=== PATIENT | male | born 1985 | race Caucasian/White ===

== ENCOUNTER 2023-02-10 14:25 | Emergency (ER) | payer OTHER, SELFPAY ==
[2023-02-10 14:43] VITALS: BP 124/62; BP 140/90; PULSE 124; RESP 20; TEMP 36.6; O2SAT 96; BMI 22.1
--- NOTE | 2023-02-10 14:59 | ED.GENADULT ---
HPI - General Adult General Chief complaint: ETOH/Substance Use Stated complaint: Poss ETOH, heavy sweating per EMS Time Seen by Provider: 02/10/23 14:50 Source: patient and EMS Mode of arrival: EMS Limitations: no limitations History of Present Illness HPI narrative: patient reports having taken drugs earlier today. He thought it was post be heroin. Is not sure exactly what he took. He otherwise feels fine. Denies any chest pain, shortness breath, palpitations. He does feel a bit restless nervous. He denies any suicidal homicidal ideation. Denies any risk of overdose. He denies any recent psychiatric evaluation. He has been to [facility] in [facility] for similar events. Does not wish to have any further evaluation at this time. He would like to be discharged. Related Data Allergies Allergy/AdvReac Type Severity Reaction Status Date / Time No Known Allergies Allergy Unverified 03/25/20 15:26 [No Known Allergies*] Review of Systems Review of Systems: CONSTITUTIONAL: Denies weight loss, fever and chills. HEENT: Denies changes in vision and hearing. RESPIRATORY: Denies SOB and cough. CV: Denies palpitations no CP. GI: Denies abdominal pain, nausea, vomiting and diarrhea. : Denies dysuria and urinary frequency. MSK: Denies myalgia and joint pain. SKIN: Denies rash and pruritus. NEUROLOGICAL: Denies headache and syncope. PSYCHIATRIC: Denies recent changes in mood. Denies anxiety and depression. All other ROS are negative unless in HPI Physical Exam ED Vital Signs: Vital Signs - 24 hr 02/10/23 14:43 Temperature 98 F Pulse Rate 124 H Respiratory Rate 20 Blood Pressure 124/62 Pulse Oximetry 96 Oxygen Delivery Method Room Air BMI result Body Mass Index 22.1 GEN: Well developed, no acute distress, alert, oriented , agitated HEENT: Normocephalic, atraumatic, normal external ears, nose appears normal, no oropharyngeal edema or exudates Eyes: Normal to appearance Neck: Supple, no lymphadenopathy Respiratory: Talks in complete sentences, no respiratory distress, clear to auscultation bilaterally Cardiovascular: Regular rate and rhythm, no murmurs rubs or gallops Abdomen: Soft, nontender, nondistended, no guarding, no rebound Back: No CVA tenderness Extremities: No clubbing cyanosis or edema Neurologic: No focal neurologic deficits, cranial nerves 2-12 intact, strength is 5/5 bilaterally Skin: No rash Medical Decision Making Medical Decision Making MDM Narrative: 38-year-old male presents with likely intoxication from unknown substance. Patient does not wish further workup. Alert, oriented. He is not suicidal homicidal. He understands that without a workup we cannot address when he may have taken in terms of illicit drugs. He is aware that that there may be started rebound reactions. Despite this, he would like to be discharged. I see no reason to do any further intervention as he remains alert and oriented. Did not receive any Narcan. He is not suicidal homicidal. He does not appear to pose threat to himself or others. Patient denies a previous psychiatric history. Differential Diagnosis Differential Diagnoses: The differential diagnosis associated with the presentation includes ( Intoxication, alcohol abuse, drug abuse, schizophrenia, bipolar disorder, agitation) Admission/Observation Consideration of admission/observation: Escalation of care including admission/observation considered Independent Historian Clinical information obtained from an independent historian. History obtained from or confirmed by: EMS Prescription Management I considered prescription management with: Other ( anxiety medications) Discharge Plan Discharge Clinical Impression: Current drug use Patient Disposition: Home, Self-Care Instructions: Polysubstance Abuse (ED) Referrals: [facility] [Provider Group]
== END 2023-02-10 15:49 | disposition home or self-care (01) ==
PROVIDERS: Emergency Provider Emergency Medicine; PCP Internal Medicine
DX: F19.90 Other psychoactive substance use, unspecified, uncomplicated (principal)
CPT/HCPCS: 99282

== ENCOUNTER 2023-02-11 04:49 | Emergency (ER) | payer OTHER, SELFPAY ==
[2023-02-11 05:03] VITALS: BP 146/86; PULSE 91; O2SAT 94; BMI 23.3
[2023-02-11 05:19] VITALS: BP 118/56; PULSE 80; RESP 18; TEMP 37.2; O2SAT 96
--- NOTE | 2023-02-11 05:20 | PC.NURSE ---
Pt alert and oriented to self and surroundings. VSS. Appears to be under the influence of a substance. Fidgety and restless, unable to sit still. Requiring assistance with changing into hospital attire as pt is unable to focus on a task. Unable to provide urine sample. Security at bedside. Pts belongings placed in decon. Pt noted to have $520 in [place], with security at this time. After short time at the bedside pt fell asleep. Pending physician eval. Will continue to monitor.
--- NOTE | 2023-02-11 05:33 | ED.PSYCH ---
HPI - Psych General Chief Complaint: ETOH/Substance Use Stated Complaint: AMS, Substance Abuse ? Time Seen by Provider: 02/11/23 05:29 Source: patient Mode of arrival: EMS Limitations: no limitations History of Present Illness HPI Narrative: Patient with history of substance Abuse says that he use fentanyl earlier, was in the parking lot screaming and yelling denied alcohol or any other substance abuse acting vague in the ER refused to give the urine sample for the test Related Data Allergies Allergy/AdvReac Type Severity Reaction Status Date / Time No Known Allergies Allergy Unverified 03/25/20 15:26 [No Known Allergies*] Review of Systems Review of Systems: Yes all other systems are reviewed and are negative PMFSH Social History Social History Advance Directives: No Advance Directives Information Provided: Yes Physical Exam Vital Signs: Vital Signs: Last Vital Signs Temp 98.9 F 02/11/23 05:19 Pulse 80 02/11/23 05:19 Resp 18 02/11/23 05:19 BP 118/56 L 02/11/23 05:19 Pulse Ox 96 02/11/23 05:19 O2 Del Method Room Air 02/11/23 05:19 BMI result Body Mass Index 23.3 Appearance: Alert. Oriented X3. No acute distress. Very anxious walking around in the ED Eyes: PERRLA, No Nystagmus ENT: Pharynx normal. Oral Mucosa moist Neck: Normal inspection. Neck supple. CVS: Normal heart rate and rhythm. Pulses normal. Respiratory: No respiratory distress. Equal air entry bilateral, no wheezing/rales/rhonchi Abdomen: Soft and nontender. Bowel sounds are present, no mass palpable, no CVA tenderness Skin: Skin warm and dry. Normal skin color. Normal skin turgor. Extremities: No lower extremity edema. No calf tenderness Neuro: Oriented X 3. No motor deficit. Medical Decision Making Medical Decision Making MDM Narrative: Patient likely poly substance abuse refused to give urine sample discharge patient home ambulatory and steady 8gait Discharge Plan Discharge Clinical Impression: Polysubstance abuse Patient Disposition: Home, Self-Care Instructions: Polysubstance Abuse (ED) Additional Instructions: Stop using drugs follow detox Interventions: ED Discharge Assessment Last Done: 02/11/23 05:44 Discharge Date/Time: 02/11/23 05:45
== END 2023-02-11 05:45 | disposition home or self-care (01) ==
PROVIDERS: Emergency Provider Internal Medicine; PCP Internal Medicine
DX: R41.82 Altered mental status, unspecified (principal); Z79.899 Other long term (current) drug therapy
CPT/HCPCS: 99283

== ENCOUNTER 2023-04-11 20:33 | Emergency (ER) | payer OTHER, SELFPAY ==
[2023-04-11 20:40] VITALS: BP 146/89; BP 178/100; PULSE 120; RESP 18; TEMP 37.4; O2SAT 88; O2SAT 96; BMI 23.6
--- NOTE | 2023-04-11 21:09 | ED.ALCOHOL ---
HPI - Alcohol General Chief Complaint: ETOH/Substance Use Stated Complaint: Altered mental state Time Seen by Provider: 04/11/23 21:07 Source: patient Mode of arrival: EMS History of Present Illness HPI narrative: Patient's history of substance abuse [facility] endorses using cocaine and dope patient diaphoretic upon EMS arrival blood glucose was 67 was given oral glucose on arrival POC was 87 patient says that he did not sleep well and whenever he takes the drugs become loud specially if he has not slept well denies use of PCP Related Data Allergies Allergy/AdvReac Type Severity Reaction Status Date / Time No Known Allergies Allergy Unverified 03/25/20 15:26 [No Known Allergies*] Review of Systems Review of Systems: Yes all other systems are reviewed and are negative [facility] Social History Social History Advance Directives: No Advance Directives Information Provided: No Physical Exam ED Vital Signs: Vital Signs - 24 hr 04/11/23 20:40 04/11/23 21:52 Temperature 99.3 F Pulse Rate 120 H Respiratory Rate 18 Blood Pressure 146/89 H Pulse Oximetry 96 94 Oxygen Delivery Method Nasal Cannula Room Air BMI result Body Mass Index 23.6 Appearance: Alert. Oriented X3. No acute distress. Eyes: PERRLA, No Nystagmus ENT: Pharynx normal. Oral Mucosa moist Neck: Normal inspection. Neck supple. CVS: Normal heart rate and rhythm. Pulses normal. Respiratory: No respiratory distress. Equal air entry bilateral, no wheezing/rales/rhonchi Abdomen: Soft and nontender. Bowel sounds are present, no mass palpable, no CVA tenderness Skin: Skin warm and dry. Normal skin color. Normal skin turgor. Extremities: No lower extremity edema. No calf tenderness Neuro: Oriented X 3. No motor deficit. No sensory deficit.No cerebellar signs , cranial nerves II-XII intact Medical Decision Making Medical Decision Making [facility] Narrative: Pre of polysubstance abuse cocaine fentanyl opiates refuse the any help for detox already on methadone will discharge patient home Lab Data [facility] Lab Attestation statement: I reviewed the patient's lab results. Labs: Lab Results 04/11/23 Range/Units 21:48 Urine Opiates Screen POSITIVE H (Not Detect) Urine Fentanyl Screen POSITIVE H (Not Detect) Ur Barbiturates Screen Not Detected (Not Detect) Ur Phencyclidine Scrn Not Detected (Not Detect) Ur Amphetamines Screen Not Detected (Not Detect) U Benzodiazepines Scrn Not Detected (Not Detect) Urine Cocaine Screen POSITIVE H (Not Detect) U Marijuana (THC) Screen Not Detected (Not Detect) Discharge Plan Discharge Clinical Impression: Polysubstance abuse Patient Disposition: Home, Self-Care Instructions: Polysubstance Abuse (ED) Additional Instructions: Stop using drugs, follow up with methadone clinic Interventions: ED Discharge Assessment Last Done: 04/11/23 22:42 Discharge Date/Time: 04/11/23 22:43
--- NOTE | 2023-04-11 21:40 | PC.NURSE ---
pt ambulated to the bathroom with steady gait, A/O x4, states he was being loud and causing a scene at home which is why PD was called, denies any complaints at this time
[2023-04-11 21:52] VITALS: O2SAT 94
[2023-04-11 22:11] LABS: Amphetamine Screen Urine Not Detected (Not Detect); Barbiturates, Urine Not Detected (Not Detect); Benzodiazepines Screen Urine Not Detected (Not Detect); Cannabinoid Screen Urine Not Detected (Not Detect); Cocaine Screen Urine POSITIVE (Not Detect); Fentanyl, urine POSITIVE (Not Detect); Opiate Screen Urine POSITIVE (Not Detect); Phencyclidine Screen Urine Not Detected (Not Detect)
== END 2023-04-11 22:43 | disposition home or self-care (01) ==
PROVIDERS: Emergency Provider Internal Medicine
DX: F11.10 Opioid abuse, uncomplicated (principal); F14.10 Cocaine abuse, uncomplicated; R41.82 Altered mental status, unspecified; Z79.899 Other long term (current) drug therapy
CPT/HCPCS: 80307; 99283

== ENCOUNTER 2023-04-14 00:49 | Emergency (ER) | payer OTHER, SELFPAY ==
[2023-04-14 00:54] VITALS: BP 118/70; PULSE 95; O2SAT 100
[2023-04-14 01:02] VITALS: BP 108/51; PULSE 72; RESP 18; TEMP 37.1; O2SAT 98; BMI 22.8
[2023-04-14 01:07] VITALS: BP 108/51; PULSE 72; RESP 18; TEMP 37.1; O2SAT 98
--- NOTE | 2023-04-14 01:09 | PC.NURSE ---
Pt calm and cooperative. Responds appropriately to verbal stimuli. Pt requested and given something to drink Plan of care ongoing.
--- NOTE | 2023-04-14 01:42 | ED.GENADULT ---
HPI - General Adult General Chief complaint: General Medical Stated complaint: drug use seeking detox Time Seen by Provider: 04/14/23 01:38 Source: patient Mode of arrival: EMS Limitations: no limitations History of Present Illness HPI narrative: Patient comes to the emergency room by ambulance. Per EMS, patient was screaming in his apartment, a bystander called the sample tailor and brought the patient to the emergency room. Patient states that he is aware he has polysubstance abuse issues. Patient states that he feels well, he is already being seen in the community for addiction issues, states that he does have relapses but overall is handling his situation fairly well. Patient denies depression, anxiety, SI or HI. Related Data Allergies Allergy/AdvReac Type Severity Reaction Status Date / Time No Known Allergies Allergy Unverified 03/25/20 15:26 [No Known Allergies*] Review of Systems Review of Systems: Constitutional : No Weight loss, No Fever, No Chills, No Night Sweats, No Fatigue, No Malaise ENT/Mouth : No Hearing loss, No Ear Pain, No Nasal Congestion, No Sinus Pain, No Hoarseness, No sore throat, No Rhinorrhea, No Swallowing Difficulty Eyes: No Eye Pain, No Swelling, No Redness, No Foreign Body, No Discharge, No Vision Changes Cardiovascular : No Chest Pain, No SOB, No Dyspnea on Exertion, No Orthopnea, No Edema, No Palpitations Respiratory : No Cough, No Sputum, No Wheezing, No Smoke Exposure, No Dyspnea Gastrointestinal : No Nausea, No Vomiting, No Diarrhea, No Constipation, No abdominal Pain, No Hematochezia, No Melena Genitourinary : no irregular bleeding, No Dysuria, No Urinary Frequency, No Hematuria, No Urinary Incontinence, No Urgency, No Flank Pain, No Urinary Flow Changes, No Hesitancy Musculoskeletal : No joint pain, No Myalgias, No Joint Swelling Skin : No Skin Lesions, No rash Neuro : No Weakness, No Numbness, No Paresthesias, No Loss of Consciousness, No Dizziness, No Headache Psych : No Anxiety/Panic, No Depression, No SI/HI/AH/VH, admits to polysubstance abuse Heme/Lymph: No Bruising, No Bleeding,No Lymphadenopathy Endocrine : No Polyuria, No Polydipsia, No Temperature Intolerance PMFSH Past Medical History Medical History (Updated 04/14/23 @ 01:45 by Rosa Dudley MD) Polysubstance abuse Social History Social History Smoked in Last 30 Days: Yes Use of substances other than those prescribed or required for medical reasons: Yes Substance Use Type: Crack/Cocaine, Heroin and Opiates Advance Directives: No Advance Directives Information Provided: Yes Physical Exam ED Vital Signs: Vital Signs - 24 hr 04/14/23 01:02 04/14/23 01:07 Temperature 98.8 F 98.8 F Pulse Rate 72 72 Respiratory Rate 18 18 Blood Pressure 108/51 L 108/51 L Pulse Oximetry 98 98 Oxygen Delivery Method Room Air Room Air BMI result Body Mass Index 22.8 Const Other: Appearance: Alert. Oriented X3. No acute distress. Eyes: Pupils equal, round and reactive to light. ENT: Pharynx normal. Neck: Normal inspection. Neck supple. No lymph nodes noted. No crepitus CVS: Normal heart rate and rhythm. Pulses normal. Normal S1 and S2 Respiratory: No respiratory distress. Breath sounds normal. No Wheezing. No rales Abdomen: Soft and nontender. No rigidity. No distention. Skin: Skin warm and clammy. Normal skin color. Normal skin turgor. Extremities: No lower extremity edema. No Lacerations. No Rash Neuro: Oriented X 3. No motor deficit. No sensory deficit. Moving all extremities. No slurred speech. CN 2 through 12 grossly intact Psych: calm, cooperative, normal affect Medical Decision Making Medical Decision Making MDM Narrative: -patient is not suicidal or homicidal, patient did not overdose, no Narcan was given. -patient states that he has already been seen by Behavioral Health, at this time, patient states that he does not need any additional resources. -patient requesting to be discharged home, patient will be given home Narcan -patient is clinically sober, vitals stable Differential Diagnosis Differential Diagnoses: The differential diagnosis associated with the presentation includes (Anxiety, depression, polysubstance abuse) Discharge Plan Discharge Clinical Impression: Substance abuse Patient Disposition: Home, Self-Care Instructions: Polysubstance Abuse (ED) Additional Instructions: Please follow-up with your primary care physician tomorrow. If you have any worsening or new symptoms, please return to the emergency room or call 911
== END 2023-04-14 02:09 | disposition home or self-care (01) ==
PROVIDERS: Emergency Provider Emergency Medicine; PCP Internal Medicine
DX: F19.10 Other psychoactive substance abuse, uncomplicated (principal)
CPT/HCPCS: 99283; 99284

== ENCOUNTER 2023-10-12 14:47 | Emergency (ER) | payer OTHER, SELFPAY ==
[2023-10-12 15:01] VITALS: BP 160/100; PULSE 106; RESP 16; TEMP 36.9; O2SAT 98; BMI 27.1
--- NOTE | 2023-10-12 15:03 | ED.GENADULT ---
HPI - General Adult General Stated complaint: SUBSTANCE ABUSE Time Seen by Provider: 10/12/23 14:55 Source: patient and EMS Mode of arrival: EMS Limitations: no limitations History of Present Illness HPI narrative: This is a 38-year-old male history of polysubstance abuse presenting with acute intoxication of opiates and cocaine, patient reports he uses opiates and cocaine daily, he used drugs today, he is outside screaming, his neighbors got scared and called the police. He tells me he was given the ultimatum to either go with the police or come to the hospital. He came to the hospital. He reports he does not have to be here, he tells me he does this all the time. Not suicidal or homicidal. No medical complaints. Patient denies hallucinations, auditory, tactile and visual. Denies chest pain, shortness of breath, nausea, vomiting, abdominal pain, headache, vision changes, dizziness and weakness. Alert and oriented x4. Was not brought in on a section 12. Related Data Allergies Allergy/AdvReac Type Severity Reaction Status Date / Time No Known Allergies Allergy Verified 10/12/23 15:07 [No Known Allergies*] Review of Systems Review of Systems: Yes all other systems are reviewed and are negative PMFSH Past Medical History Attestation statement: The following information was validated with the patient. Source: old records reviewed and nursing notes reviewed Medical History (Updated 10/12/23 @ 15:02 by ALESHA Golden) Polysubstance abuse Social History Social History Substance Use Type: Crack/Cocaine, Heroin and Opiates Physical Exam ED Vital Signs: vss Appearance: Alert.? Oriented X3.? No acute distress.? Head: Normocephalic, atraumatic, no step-offs or deformities Eyes: Pupils equal, round and reactive to light.? Neck: Normal inspection.? Neck supple.? CVS: Pulses normal.? Respiratory: No respiratory distress.? Abdomen: Soft and nontender.? Skin: Skin warm and dry.? Normal skin color.? Normal skin turgor.? Extremities: 5/5 strength to bilateral upper and lower extremities Neuro: Oriented X 3.? No motor deficit.? No sensory deficit. CN 2-12 intact . Ambulating with steady gait normal coordination. Course Reevaluation(s) Reevaluation #1: Educated patient on diagnosis and treatment plan, answered all question, patient verbalizes understanding. At this time patient will be discharged home, advised to return with new or worsening symptoms. Educated on worrisome signs and symptoms and when to return. At this time I feel comfortable discharge home. Medical Decision Making Medical Decision Making MDM Narrative: 38-year-old male presents with polysubstance abuse. Not SI or HI. Patient wants to leave upon arrival. No medical complaints. Refusing labs, imaging, detox. Does not want substance use disorder evaluation Physical examination benign. Patient alert and oriented x4. Ambulatory steady gait normal coordination. Requesting to leave Explained to him it would be good if he got seen by the care team and was observed for awhile however he is refusing. No indication for section 12. Will discharge him home with Narcan. This is likely polysubstance abuse. Unlikely alcohol intoxication patient denies this. No metabolic derangements suspected. Unlikely intracranial hemorrhage, stroke posterior stroke. No signs of trauma to head, neck, chest, abdomen or pelvis Differential Diagnosis Differential Diagnoses: The differential diagnosis associated with the presentation includes This is likely polysubstance abuse. Unlikely alcohol intoxication patient denies this. No metabolic derangements suspected. Unlikely intracranial hemorrhage, stroke posterior stroke. No signs of trauma to head, neck, chest, abdomen or pelvis Admission/Observation Consideration of admission/observation: Escalation of care including admission/observation considered Lab Data Labs: refused Independent Historian Clinical information obtained from an independent historian. History obtained from or confirmed by: EMS Prescription Management I considered prescription management with: Other (narcan ) Chronic Conditions Patient?s care impacted by: Other (ivda) Discharge Plan Discharge Clinical Impression: Opiate addiction, Cocaine abuse, Polysubstance abuse Patient Disposition: Home, Self-Care Instructions: Cocaine Abuse (ED), Polysubstance Abuse (ED) Additional Instructions: Take your medications as prescribed. If you were prescribed antibiotics today, it is important that you take your medication to their entirety, do not skip any doses, do not finish them early. Follow-up with your primary care provider this week. Return to the emergency department with new or worsening symptoms. Such as fevers, chills, chest pain, shortness of breath, nausea, vomiting, dizziness, headache, vision changes, lethargy, suicidal or homicidal ideation In case of emergency call 911 You decided to leave the emergency department you did not want a medical workup because you report nothing is hurting you. If you change your mind please return. Referrals: ED Physician,Generic [Physician] - 2 days Stand Alone Forms: Work/School Release Print Language: Djiboutian
[2023-10-12 15:21] VITALS: BP 160/100; PULSE 106; RESP 16; TEMP 36.9; O2SAT 98
== END 2023-10-12 15:22 | disposition home or self-care (01) ==
LOC: HO.ED 15:20
PROVIDERS: Emergency Provider Emergency Medicine
DX: F11.20 Opioid dependence, uncomplicated (principal); F14.10 Cocaine abuse, uncomplicated
CPT/HCPCS: 99282

== ENCOUNTER 2024-01-26 00:13 | Emergency (ER) | payer OTHER, SELFPAY ==
[2024-01-26 00:23] VITALS: BP 132/66; PULSE 92; O2SAT 94; BMI 22.1
[2024-01-26 00:27] VITALS: BP 135/88; PULSE 94; RESP 19; TEMP 36.7; O2SAT 98
--- NOTE | 2024-01-26 01:00 | ED_ITS ---
HPI - Psych General Chief Complaint: Behavioral Concerns Stated Complaint: QUESTION OF DRUG USE Time Seen by Provider: 01/26/24 00:59 Source: patient Mode of arrival: EMS Limitations: no limitations History of Present Illness ED Provider: BETSY HPI Narrative: 38 yo male known to us with hx of opiate and cocaine abuse admits to using tonight he was making noises in his apartment and PD called who wanted him transferred for eval to see if he was on drugs. He has no SI/HI. He is calm and cooperative here. He has occasional vocal tics but is not agitated. He does not want detox. No narcan needed. Does not want detox or SUDE. Wants to leave AMA. complaint: substance abuse Onset (ago): year(s) Duration: intermittent History of same: Yes Relieving factors: none Exacerbating factors: drug use Context: recent drug abuse Associated psychiatric symptoms: none Associated symptoms: denies other symptoms Treatments prior to arrival: none Related Data Allergies Allergy/AdvReac Type Severity Reaction Status Date / Time No Known Allergies Allergy Verified 01/26/24 00:25 [No Known Allergies*] Review of Systems Review of Systems: Constitutional : No Fever, No Chills ENT/Mouth : No Ear Pain, No Nasal Congestion, No sore throat Eyes: No Eye Pain, No Swelling, No Redness Cardiovascular : No Chest Pain, No SOB Respiratory : No Cough, No Sputum, No Dyspnea Gastrointestinal : No Nausea, No Vomiting, No Diarrhea, No Hematochezia, No Melena Genitourinary : No Dysuria, No Urinary Frequency, No Hematuria Musculoskeletal : No Myalgias Skin : No Skin Lesions, No rash Neuro : No Weakness, No Numbness, No Paresthesias, No Dizziness, No Headache Psych : no Anxiety, no Depression, no SI/HI All other systems reviewed and are negative PMFSH Past Medical History Attestation statement: The following information was validated with the patient. Source: old records reviewed Medical History Polysubstance abuse Social History Social History (Updated 01/26/24 @ 01:07 by Kaya Bowden DO) Patient Tobacco Use Status: Current someday Tobacco user Substance Use Type: Crack/Cocaine, Heroin and Opiates Physical Exam Vital Signs: Vital Signs: Last Vital Signs Temp 98.0 F 01/26/24 00:27 Pulse 94 01/26/24 00:27 Resp 19 01/26/24 00:27 BP 135/88 01/26/24 00:27 Pulse Ox 98 01/26/24 00:27 O2 Del Method Room Air 01/26/24 00:27 BMI result Body Mass Index 22.1 Appearance: Alert. Oriented X3. No acute distress. intermittent vocal tics Eyes: Pupils equal, round and reactive to light. 5mm ENT: Pharynx normal. atraumatic Neck: Normal inspection. Neck supple. CVS: Normal heart rate and rhythm. Pulses normal. Respiratory: No respiratory distress. Breath sounds normal. Abdomen: Soft and nontender. Skin: Skin warm and dry. Normal skin color. Extremities: No lower extremity edema. Neuro: Oriented X 3. No motor deficit. No sensory deficit. Medical Decision Making Medical Decision Making [facility] Narrative: 38 yo male admits to drug abuse here with c/o police being called about noise complaint sent to the ED to see if he is on drugs - he has no SI/HI no AH/VH he admits to drug use. He has not received narcan he does not want any interventions. He is clinically sober. He has vocal tics. He is calm and cooperative here and alert and oriented x 3. At this time he can be DC home Differential Diagnosis Differential Diagnoses: The differential diagnosis associated with the presentation includes drug abuse Admission/Observation Consideration of admission/observation: Escalation of care including ad mission/observation considered alert and oriented x 3 - requested to leave AMA Independent Historian Clinical information obtained from an independent historian. History obtained from or confirmed by: EMS External Record Review External record reviewed: Inpatient record Prescription Management I considered prescription management with: Other Discharge Plan Discharge Clinical Impression: Active substance abuse Patient Disposition: Home, Self-Care Instructions: Polysubstance Abuse (ED), Against Medical Advice (ED) Additional Instructions: return for any worsening symptoms or concerns please carry narcan with you at all times you were offered to stay in the ED but refused you can return any time Print Language: Malay
[2024-01-26] MEDS: Naloxone HCl Nasal TAKE HOME 4 MG SPRAY 8 MG NOSTRILALT (01:18)
--- NOTE | 2024-01-26 01:18 | PC.NURSE ---
pt is axox4 refusing po meds states he does not want to stay in the ed as he has people at home he needs to go back to. pt is ambulatory with steady gait. calm/cooperative speaking full clear sentences. pt educated on narcan/overdose pt verbalizes understanding d/c instructions. unable to scan med barcode as pt walked away from RN to security to obtain clothes frm decon. pt given take home narcan. pt refused vitals.
[2024-01-26 01:19] VITALS: BP 135/88; PULSE 94; RESP 19; TEMP 36.7; O2SAT 98
== END 2024-01-26 01:20 | disposition home or self-care (01) ==
PROVIDERS: Emergency Provider Emergency Medicine
DX: F19.10 Other psychoactive substance abuse, uncomplicated (principal); Z53.29 Procedure and treatment not carried out because of patient's decision for other reasons
CPT/HCPCS: 99282; 99283

== ENCOUNTER 2024-01-27 22:19 | Emergency (ER) | payer OTHER, SELFPAY ==
--- NOTE | 2024-01-27 22:23 | ED_ITS ---
HPI - Psych General Chief Complaint: ETOH/Substance Use Stated Complaint: substance abuse Time Seen by Provider: 01/27/24 22:20 Source: patient Mode of arrival: EMS Limitations: no limitations History of Present Illness ED Provider: BETSY HPI Narrative: 39 yo male with PMH of polysubstance abuse here with c/o again of using drugs but doesn't want detox and is not suicidal. He was again outside being disruptive and loud. He is alert and oriented and wants no assistnce. He does not want labs or medications. He just wants to yell at staff. I am not sure why he keeps coming in for drug use if he is being disruptive with noise complaints. MD complaint: substance abuse Onset (ago): month(s) Duration: intermittent History of same: Yes Relieving factors: none Exacerbating factors: drug use Context: recent drug abuse Associated psychiatric symptoms: none Associated symptoms: denies other symptoms Treatments prior to arrival: none Related Data Allergies Allergy/AdvReac Type Severity Reaction Status Date / Time No Known Allergies Allergy Verified 01/27/24 22:36 [No Known Allergies*] Review of Systems Review of Systems: Constitutional : No Fever, No Chills, No Fatigue ENT/Mouth : No sore throat, No Rhinorrhea Eyes: No Eye Pain, No Swelling, No Redness Cardiovascular : No Chest Pain, No SOB, No Dyspnea on Exertion Respiratory : No Cough, No Sputum Gastrointestinal : No Nausea, No Vomiting, No Diarrhea, No abdominal Pain Genitourinary : No Dysuria, No Urinary Frequency, No Hematuria, Musculoskeletal : No joint pain, No Myalgias, No Joint Swelling Skin : No Skin Lesions, No rash Neuro : No Weakness, No Numbness, No Dizziness, no Headache Psych : No Anxiety/Panic, No Depression, no SI/HI All other systems reviewed and are negative [facility] Past Medical History Attestation statement: The following information was validated with the patient. Source: old records reviewed Medical History Polysubstance abuse Social History Social History Patient Tobacco Use Status: Current someday Tobacco user Substance Use Type: Crack/Cocaine, Heroin and Opiates Physical Exam Vital Signs: Vital Signs: Last Vital Signs Temp 98.6 F 01/27/24 22:33 Pulse 97 01/27/24 22:33 Resp 20 01/27/24 22:33 BP 131/86 01/27/24 22:33 Pulse Ox 96 01/27/24 22:33 O2 Del Method Room Air 01/27/24 22:33 BMI result Body Mass Index 22.1 Appearance: Alert. Oriented X3. sweaty and clearly under stimulant use. No acute distress. Eyes: Pupils equal, round and reactive to light. dilated 5mm ENT: Pharynx normal. atraumatic Neck: Normal inspection. Neck supple. CVS: Normal heart rate and rhythm. Pulses normal. Respiratory: No respiratory distress. Abdomen: Soft and nontender. atraumatic Skin: Skin warm and dry. Normal skin color. Normal skin turgor. Extremities: No lower extremity edema. No calf ttp Neuro: Oriented X 3. No motor deficit. No sensory deficit. Course Course Course Narrative: patient has not received narcan he is alert and oriented x 3 he does not want assistance he has steady gait he can tell me all information why he is here I do not feel I can section him because he uses drugs at this time he is free to go was given narcan the other night states he still has it Medical Decision Making Medical Decision Making MDM Narrative: 39 yo male with PMH of polysubstance abuse here with c/o being disruptive and loud he does not want labs or any help - refuses medications. He does not want detox or crisis will observe and I do not think I can section him he is alert and oriented. He self admits to drugs he is allowed to make bad personal decisions. No signs of head trauma Differential Diagnosis Differential Diagnoses: The differential diagnosis associated with the presentation includes admitted drug abuse Admission/Observation Consideration of admission/observation: Escalation of care including admission/observation considered patient refuses all care and interventions he has been seen for this before does not want detox or crisis alert and oriented x 3, no SI External Record Review External record reviewed: Inpatient record Social Determinants Patient?s care significantly limited by Social Determinants of Health including: Problems related to primary support group Discharge Plan Discharge Clinical Impression: Polysubstance abuse Patient Disposition: Left Against Medical Advice Instructions: Polysubstance Abuse (ED), Against Medical Advice (ED) Additional Instructions: if you change your mind about detox we are here return for any worsening symptoms or concerns Print Language: Icelandic
[2024-01-27 22:33] VITALS: BP 131/86; PULSE 97; RESP 20; TEMP 37; O2SAT 96; BMI 22.1
[2024-01-27 23:06] VITALS: BP 131/86; PULSE 97; RESP 20; TEMP 37; O2SAT 96
== END 2024-01-27 23:07 | disposition left against medical advice (07) ==
PROVIDERS: Emergency Provider Emergency Medicine
DX: F14.10 Cocaine abuse, uncomplicated (principal); F11.10 Opioid abuse, uncomplicated; F17.200 Nicotine dependence, unspecified, uncomplicated
CPT/HCPCS: 99282

== ENCOUNTER 2024-02-18 13:52 | Emergency (ER) | payer OTHER, SELFPAY ==
--- NOTE | 2024-02-18 14:00 | ED_ITS ---
HPI - Psych General Stated Complaint: SUBSTANCE USE,BIZARRE BEHAVIOR PER EMS Source: patient, EMS and old records reviewed Mode of arrival: EMS Limitations: no limitations History of Present Illness ED Provider: BETSY HPI Narrative: 39 yo male with active substance abuse opiate and cocaine who [place] erratic at the mall after drug use. Pulling his pants down. No narcan needed not sleepy. The patient denies SI/HI does not want resources no SUDE does not want anything on arrival asking to leave. Has done this multiple times. Unsure why he is at hospital and not in custody if he is exposing himself. MD complaint: substance abuse Onset (ago): month(s) Duration: intermittent History of same: Yes Relieving factors: none Exacerbating factors: drug use Context: recent drug abuse Associated psychiatric symptoms: none Associated symptoms: denies other symptoms Related Data Allergies Allergy/AdvReac Type Severity Reaction Status Date / Time No Known Allergies Allergy Verified 02/18/24 14:05 [No Known Allergies*] Review of Systems Review of Systems: ROS unable to be obtained due to patient not being cooperative [facility] Past Medical History Attestation statement: The following information was validated with the patient. Source: old records reviewed Medical History Polysubstance abuse Social History Social History Patient Tobacco Use Status: Current someday Tobacco user Substance Use Type: Crack/Cocaine, Heroin and Opiates Physical Exam Vital Signs: Appearance: Alert. Oriented X3. No acute distress. not very nice, rude, appears hyper Eyes: Pupils equal, round and reactive to light. ENT: Pharynx normal. atraumatic Neck: Normal inspection. CVS: Pulses normal. Respiratory: No respiratory distress. Abdomen: atraumatic Skin: Skin warm and dry. Normal skin color. Normal skin turgor. Extremities: No lower extremity edema. Neuro: Oriented X 3. No motor deficit. No sensory deficit. Medical Decision Making Medical Decision Making [facility] Narrative: 39 yo male with active substance abuse opiate and cocaine here after pulling his pants down at the mall and using drugs. He has no SI/HI he does not want detox. He has not received narcan at this time there is no indication to keep him and he wants to leave. I cannot section him. He is free to leave. Differential Diagnosis Differential Diagnoses: The differential diagnosis associated with the presenta tion includes drug abuse Admission/Observation Consideration of admission/observation: Escalation of care including admission/o bservation considered refuses any care does not want SUDE does not need narcan to go Independent Historian Clinical information obtained from an independent historian. History obtained from or confirmed by: EMS External Record Review External record reviewed: Inpatient record Discharge Plan Discharge Clinical Impression: Active substance abuse Patient Disposition: Left Against Medical Advice Instructions: Polysubstance Abuse (ED), Against Medical Advice (ED) Additional Instructions: return for any worsening symptoms or concerns. Print Language: Luxembourgish
[2024-02-18 14:01] VITALS: BMI 23.6
--- NOTE | 2024-02-18 14:05 | PC.NURSE ---
patient presented with friend via EMS. patient per EMS was acting erratic in the street, flailing around in intersection and disrobing. patient presented to ED requesting to leave AMA, patient gave name and , registration updated chart from radha garcia. patient then ambulated off of unit with steady gait. refused assessment and vitals. gave height and weight
--- NOTE | 2024-02-18 14:09 | PC.NURSE ---
patient refused to sign ama paper
== END 2024-02-18 14:09 | disposition left against medical advice (07) ==
PROVIDERS: Emergency Provider Emergency Medicine
DX: F11.121 Opioid abuse with intoxication delirium (principal); F14.10 Cocaine abuse, uncomplicated; F17.210 Nicotine dependence, cigarettes, uncomplicated
CPT/HCPCS: 99281

== ENCOUNTER 2024-05-06 17:51 | Emergency (ER) | payer OTHER, SELFPAY ==
[2024-05-06 18:00] VITALS: BP 128/90; PULSE 107; O2SAT 96
--- NOTE | 2024-05-06 18:01 | ED_ITS ---
HPI - General Adult General Chief complaint: ETOH/Substance Use Stated complaint: Per PD Time Seen by Provider: 05/06/24 18:01 History of Present Illness ED Provider: Sadiq GREGG narrative: The patient is a 39-year-old male who was brought to the hospital by ambulance. He was apparently falling asleep on a park bench and seemed very drowsy. Police convinced him to come to the hospital by ambulance. On arrival here the patient does not wish to be evaluated. He says that he did not wish to come to the hospital and only came to please the credit administration officer. He says he has no complaints. He denies any suicidality or homicidality. He has no plans to harm himself in any way. Related Data Allergies Allergy/AdvReac Type Severity Reaction Status Date / Time No Known Allergies Allergy Verified 05/06/24 18:08 [No Known Allergies*] Review of Systems Review of Systems: Yes all other systems are reviewed and are negative PMFSH Past Medical History Medical History Polysubstance abuse Social History Social History Patient Tobacco Use Status: Current someday Tobacco user Substance Use Type: Crack/Cocaine, Heroin and Opiates Advance Directives: No Advance Directives Information Provided: No Physical Exam ED Vital Signs: BMI result Body Mass Index 21.6 Const Other: The patient is a slim, disheveled 39-year-old who was awake and alert and does not seem in any distress. HENMT Other: Face is symmetrical. Mucous membranes moist. Eyes General: appearance normal, both eyes and all related structures Neck Other: Moving his neck easily Resp Effort & Inspection: normal respiratory effort Neuro Other: The patient is awake and alert. He seems reasonably coherent. Cranial nerves are grossly intact. He moves his extremities normally. He has a steady gait. Medical Decision Making Medical Decision Making MDM Narrative: The patient is a 39-year-old male with a history of polysubstance abuse who was brought to the hospital by ambulance after police convinced him to come. He had been on a park bench and seemed very drowsy. He did not receive any naloxone. On arrival here he got up off the stretcher and walked to the exit saying that he wanted to leave. He denies having any medical complaints and has no interested in being evaluated or having any testing done. He will be allowed to leave as he does not seem suicidal or significantly impaired at the moment. He says his PCP is at the [facility] and he is advised to follow up with his PCP or return to the emergency room if he has any medical concerns. Discharge Plan Discharge Clinical Impression: Encounter for behavioral health screening Patient Disposition: Home, Self-Care Additional Instructions: Please follow up with your regular doctor's office. Please return to the emergency room if you feel you need any help. Referrals: [facility] [Provider Group] Print Language: Icelandic
[2024-05-06 18:06] VITALS: BMI 21.6
[2024-05-06 18:12] VITALS: BP 0/0; PULSE 0; RESP 0; TEMP -17.7; TEMP 0
--- NOTE | 2024-05-06 18:18 | PC.NURSE ---
Late entry. This RN approached patient who refused VS, was ambulatory and stated AMA . Reprted that he just wanted to leave. Reports drug use but denies SI. Did not require narcan. Is axox3. Spent a length oftime in [facility] but left with brisk steady gait.
== END 2024-05-06 18:12 | disposition home or self-care (01) ==
PROVIDERS: Emergency Provider Emergency Medicine
DX: F14.10 Cocaine abuse, uncomplicated (principal); F11.10 Opioid abuse, uncomplicated; Z79.899 Other long term (current) drug therapy
CPT/HCPCS: 99282

== ENCOUNTER 2024-05-23 19:27 | Emergency (ER) | payer OTHER, SELFPAY ==
[2024-05-23 19:35] VITALS: RESP 18
--- NOTE | 2024-05-23 19:55 | ED.GENADULT ---
HPI - General Adult General Chief complaint: General Medical Stated complaint: ETOH Time Seen by Provider: 05/23/24 19:54 Source: patient, EMS and RN notes reviewed Mode of arrival: EMS Limitations: no limitations History of Present Illness ED Provider: Nguyễn GREGG narrative: 39-year-old male presents for evaluation after being picked up in the street. Apparently EMS was called as the patient was yelling in the street There was concern from EMS with the patient was intoxicated due to alcohol The patient offers no complaints. He has no pain. He reports he has not depressed or suicidal. He does not want to harm anybody else He does not want to be in the hospital and would like to leave Related Data Allergies Allergy/AdvReac Type Severity Reaction Status Date / Time No Known Allergies Allergy Verified 05/23/24 19:35 [No Known Allergies*] Review of Systems Constitutional: Constitutional: Denies body ache(s), Denies chills and Denies headache(s) Eyes: Eyes: Denies blurry vision ENT: Denies vertigo and Denies headache(s) Cardiovascular: Cardiovascular: Denies chest pain, Denies chest pain at rest and Denies dyspnea Respiratory: Respiratory: Denies cough and Denies dyspnea Gastrointestinal: Gastrointestinal: Denies abdominal pain, Denies nausea and Denies vomiting Genitourinary: Genitourinary: Denies flank pain Musculoskeletal: Musculoskeletal: Denies back pain Integumentary/Breasts: Skin/Breast: Denies rash Neurologic: Denies vertigo and Denies headache(s) Psychiatric: Psychiatric: Denies anxiety [facility] Past Medical History Medical History Polysubstance abuse Social History Social History Patient Tobacco Use Status: Current someday Tobacco user Substance Use Type: Crack/Cocaine, Heroin and Opiates Advance Directives: No Advance Directives Information Provided: No Physical Exam ED Vital Signs: Vital Signs - 24 hr 05/23/24 19:35 Respiratory Rate 18 BMI result Body Mass Index 20.0 Const General: healthy appearing, comfortable, no acute distress, alert and awake Nutritional Appearance: well nourished Orientation/consciousness: patient oriented x3 HENMT Head: Yes normocephalic and Yes atraumatic Eyes Eyelids: Yes eyelids normal Conjunctivae: conjunctivae normal Sclerae: sclerae normal Corneas: corneas normal Pupils: Equal, round and reactive pupils present EOM: EOMs intact bilaterally Neck Neck: Yes full ROM Resp Effort & Inspection: normal respiratory effort, able to speak in complete sentences and not labored GI Inspection: No distended Palpation (GI): Soft to palpation, not firm, nontender, no guarding and not rigid Skin General skin exam: elasticity normal Neuro General: patient oriented x3 Cranial nerves: Yes CN's II-XII intact bilaterally, Yes Equal, round and reactive pupils present and Yes Bilaterally intact EOM present Cognition (Neuro): normal cognition Extrem Other: Moving all extremities well without any obvious deformities Medical Decision Making Medical Decision Making MDM Narrative: 39-year-old male presents for evaluation after being picked up by EMS in the street. He has no complaints or concerns. He is alert and oriented x4. He has no obvious signs of trauma. He ambulates with a steady, even gait. The patient will be discharged per his request. Differential Diagnosis Differential Diagnoses: The differential diagnosis associated with the presentation includes Alcohol use disorder Psychosis Substance abuse Polysubstance abuse Discharge Plan Discharge Clinical Impression: Alcohol use Patient Disposition: Home, Self-Care Instructions: Alcohol Use Disorder (ED) Additional Instructions: Follow-up with your primary doctor, return for new or worsening symptoms Print Language: Tamazight
[2024-05-23 20:16] VITALS: BP 00/00; PULSE 0; RESP 18; TEMP -17.7; TEMP 0; O2SAT 0
== END 2024-05-23 20:19 | disposition home or self-care (01) ==
PROVIDERS: Emergency Provider Internal Medicine
DX: F10.939 Alcohol use, unspecified with withdrawal, unspecified (principal)
CPT/HCPCS: 99283

== ENCOUNTER 2024-06-23 09:46 | Emergency (ER) | payer OTHER, SELFPAY ==
[2024-06-23 10:01] VITALS: BP 160/90; PULSE 146; O2SAT 94; BMI 25.7
--- NOTE | 2024-06-23 10:04 | ED.GENADULT ---
HPI - General Adult General Chief complaint: ETOH/Substance Use Stated complaint: Pt injested unk substance w/ Cocaine. Pt agitated Time Seen by Provider: 06/23/24 09:54 Source: patient and EMS Mode of arrival: EMS Limitations: no limitations History of Present Illness ED Provider: Delia Hewitt PA-C HPI narrative: Patient is a 39 year old assigned male at with a history of polysubstance use / abuse presenting to the emergency department today requesting to be evaluated. Patient states that he called 911 to be evaluated but now that he is here, he does not want to be and he would like to leave. Patient states that she uses drugs and this is not new or different. Patient denies any dizziness, lightheadedness, abdominal pain, nausea, vomiting, fever, chills, blurry vision, double vision, loss of vision, chest pain, difficulty breathing, shortness of breath, back pain, night sweats, pain with urination, increased urinary frequency, increased urinary urgency, blood in his urine or stool, syncope or a near syncopal episode, recent trauma or falls, bowel incontinence, bladder incontinence, or any other complaints at this time. Relieving factors: none Exacerbating factors: none Associated symptoms: denies other symptoms Treatments prior to arrival: none Related Data Allergies Allergy/AdvReac Type Severity Reaction Status Date / Time No Known Allergies Allergy Verified 06/23/24 10:03 [No Known Allergies*] Review of Systems Constitutional: Constitutional: Reports no additional constitutional complaints, Denies chills, Denies fever(s) and Denies night sweats Eyes: Eyes: Reports no additional eye complaints, Denies blurry vision, Denies change in vision, Denies diplopia, Denies eye discharge, Denies loss of vision and Denies eye pain ENT: Denies dizziness Cardiovascular: Cardiovascular: Reports no additional cardiovascular complaints, Denies chest pain, Denies lightheadedness, Denies Loss of Consciousness and Denies dyspnea Respiratory: Respiratory: Reports no additional respiratory complaints and Denies dyspnea Gastrointestinal: Gastrointestinal: Reports no additional gastrointestinal complaints, Denies abdominal pain, Denies melena, Denies hematochezia, Denies change in bowel habits and Denies change in stool character Genitourinary: Genitourinary: Reports no additional male genitourinary complaints, Denies hematuria, Denies oliguria, Denies difficulty urinating, Denies dysuria, Denies urinary frequency, Denies urinary hesitancy, Denies urinary incontinence and Denies urinary urgency Musculoskeletal: Musculoskeletal: Reports no additional musculoskeletal complaints, Denies numbness and Denies tingling Neurologic: Denies dizziness, Denies loss of vision, Denies numbness and Denies tingling Psychiatric: Psychiatric: Reports no additional psychiatric complaints Endocrine: Endocrine: Reports no additional endocrine complaints Hematologic/Lymphatic: Hematologic/Lymphatic: Reports no additional hematologic/lymphatic complaints Allergic/Immunologic: Allergic/Immunologic: Reports no additional allergic/immunologic complaints [facility] Past Medical History Attestation statement: The following information was validated with the patient. Source: old records reviewed and nursing notes reviewed Medical History Polysubstance abuse Social History Social History Patient Tobacco Use Status: Current someday Tobacco user Substance Use Type: Crack/Cocaine, Heroin and Opiates Advance Directives: No Advance Directives Information Provided: No Do you have a plan to hurt others: No Plan Physical Exam ED Vital Signs: Vital Signs - 24 hr 06/23/24 10:08 Temperature 0 F L Pulse Rate 0 L Respiratory Rate 0 L Blood Pressure 00/00 L Pulse Oximetry 0 L BMI result Body Mass Index 25.7 Const General: cooperative, no acute distress, alert and awake Nutritional Appearance: well nourished Orientation/consciousness: patient oriented x3 Limitations: no limitations HENMT Head: Yes normal to inspection and Yes atraumatic Ears: hearing grossly normal bilaterally and external ears normal General nose exam: Normal external nose present, no nasal discharge noted and no epistaxis Face and sinus: Yes normal facial exam, No abrasion and No laceration Mouth: Normal oral and palatal mucosa present, no drooling and no muffled voice Eyes General: appearance normal, both eyes and all related structures Periorbital: periorbital findings normal Eyelids: Yes eyelids normal Conjunctivae: conjunctivae normal Pupils: Equal, round and reactive pupils present EOM: EOMs intact bilaterally Neck Neck: Yes normal visual inspection, Yes full ROM and Yes no lymphadenopathy Chest Chest palpation & inspection: normal inspection of the chest Resp Effort & Inspection: normal respiratory effort and able to speak in complete sentences GI Inspection: Yes normal to inspection Neuro General: patient oriented x3 and moves all extremities Cranial nerves: Yes Equal, round and reactive pupils present Cognition (Neuro): normal cognition Extrem General: Yes normal to inspection, Yes full ROM and Yes capillary refill normal Psych Appearance: grossly normal Mental Status: mental status grossly normal Affect: normal affect Attitude: cooperative Thought process: Normal thought process present Thought content: Normal thought content present Insight: Good insight present (Psych) Medical Decision Making Medical Decision Making MDM Narrative: Patient is a 39 year old assigned male at with a history of polysubstance use / abuse presenting to the emergency department today for an examination. Patient's physical exam was unremarkable. Patient refused to allow any vital signs to be performed or any further work up. I explained my physical exam findings to the patient. I answered all questions asked by the patient. I stressed the importance of the patient taking his medication as directed (either prescribed or as the over the counter packaging recommends). I stressed the importance of the patient following up with his primary care provider. I stressed the importance of the patient returning to the emergency department immediately if his symptoms were to worsen or if he were to develop any dizziness, shortness of breath, difficulty breathing, chest pain, blurry vision, loss of vision, nausea, vomiting, abdominal pain, fever, chills, back pain, or any other complaints. Patient verbalized agreement and understanding with this treatment plan and discharge. Differential Diagnosis Differential Diagnoses: The differential diagnosis associated with the presentation includes Polysubstance use / abuse Admission/Observation Consideration of admission/observation: Escalation of care including admission/observation considered Patient would have been admitted to the hospital had his clinical presentation warranted hospital admission. Discharge Plan Discharge Clinical Impression: Polysubstance use disorder Patient Disposition: Home, Self-Care Instructions: Polysubstance Abuse (ED) Additional Instructions: Please do not use illicit drugs. If you do use illicit drugs - please do not use alone. Follow up with your primary care provider. Return to the emergency department immediately if you develop any dizziness, shortness of breath, difficulty breathing, chest pain, blurry vision, loss of vision, nausea, vomiting, abdominal pain, fever, chills, back pain, or any other complaints. [facility] ([facility]) at [facility]: [address] [place] [id number] Walk in hours from 10am - 12pm Open from 10am - 12pm [facility]: [address] [facility] [place] [address] Walk in hours from 10am - 12pm Open 29/01 [facility]: [address] [place] [address] AND [address] [place] [address] Hours: M-F 8am to 8pm Sunday and Sunday 9am to 5pm Referrals: [facility] [Provider Group] (Call to establish and follow up with the comprehensive care center if you would like to be considered for suboxone. ) [facility] [Provider Group] (Call to establish and follow up with a primary care provider. If you already have a primary care provider, please follow up with them.) [facility] [Provider Group] (Call to establish and follow up with a primary care provider. If you already have a primary care provider, please follow up with them.) [facility] [Provider Group] (Call to establish and follow up with a primary care provider. If you already have a primary care provider, please follow up with them.) Interventions: ED Discharge Assessment Last Done: 06/23/24 10:08 Discharge Date/Time: 06/23/24 10:22 Print Language: Kiswahili
--- NOTE | 2024-06-23 10:07 | PC.NURSE ---
patient refused to answer any questions or have his vitals taken, PA is aware. escorted out by security.
[2024-06-23 10:08] VITALS: BP 00/00; PULSE 0; RESP 0; TEMP -17.7; TEMP 0; O2SAT 0
== END 2024-06-23 10:22 | disposition home or self-care (01) ==
LOC: HO.ED 10:17
PROVIDERS: Emergency Provider Emergency Medicine
DX: F14.10 Cocaine abuse, uncomplicated (principal); F11.90 Opioid use, unspecified, uncomplicated; Z71.51 Drug abuse counseling and surveillance of drug abuser
CPT/HCPCS: 99282

== ENCOUNTER 2024-07-11 02:11 | Emergency (ER) | payer OTHER, SELFPAY ==
--- NOTE | 2024-07-11 02:23 | ED.GENADULT ---
HPI - General Adult General Chief complaint: General Medical Stated complaint: Wants to talk to someone - Behavioral Time Seen by Provider: 07/11/24 02:22 Source: patient Mode of arrival: EMS Limitations: no limitations History of Present Illness ED Provider: HPI narrative: Patient's history of opiate fentanyl and cocaine abuse homeless comes here asking for the food no other medical reason does not want to go to detox Related Data Allergies Allergy/AdvReac Type Severity Reaction Status Date / Time No Known Allergies Allergy Verified 07/11/24 02:33 [No Known Allergies*] Review of Systems Review of Systems: Yes all other systems are reviewed and are negative [facility] Past Medical History Medical History Polysubstance abuse Social History Social History Patient Tobacco Use Status: Current someday Tobacco user Substance Use Type: Crack/Cocaine, Heroin and Opiates Physical Exam ED Vital Signs: Vital Signs - 24 hr 07/11/24 02:31 Temperature 97.4 F Pulse Rate 109 H Respiratory Rate 14 Blood Pressure 117/65 Pulse Oximetry 97 Oxygen Delivery Method Room Air BMI result Body Mass Index 26.0 Appearance: Alert. Oriented X3. No acute distress. Eyes: PERRLA, No Nystagmus ENT: Pharynx normal. Oral Mucosa moist Neck: Normal inspection. Neck supple. CVS: Normal heart rate and rhythm. Pulses normal. Respiratory: No respiratory distress. Equal air entry bilateral, no wheezing/rales/rhonchi Abdomen: Soft and nontender. Bowel sounds are present, no mass palpable, no CVA tenderness Skin: Skin warm and dry. Normal skin color. Normal skin turgor. Extremities: No lower extremity edema. No calf tenderness Neuro: Oriented X 3. No motor deficit. No sensory deficit.No cerebellar signs , cranial nerves II-XII intact Medical Decision Making Medical Decision Making MDM Narrative: Patient is homeless without any significant medical complaints asking for the food which was given discharge patient Discharge Plan Discharge Clinical Impression: Homeless, Polysubstance abuse Patient Disposition: Home, Self-Care Instructions: Polysubstance Abuse (ED) Additional Instructions: Follow with detox Print Language: Guatemalan
[2024-07-11 02:30] VITALS: BP 117/65; PULSE 109; RESP 14; TEMP 36.3; O2SAT 97
[2024-07-11 02:31] VITALS: BP 117/65; PULSE 109; RESP 14; TEMP 36.3; O2SAT 97; BMI 26.0
--- NOTE | 2024-07-11 02:37 | PC.NURSE ---
Addendum entered by Latesha Vásquez RN 07/11/24 02:44: patient diaphoretic falling asleep on stretcher, but was able to ambulate to bathroom. Original Note: patient refusing to roll changer stated he is only here because the Police are annoying and didnt want to go with them stated he has no medical problems and is not SI/HI and per dr is cleared to leave.
== END 2024-07-11 04:15 | disposition home or self-care (01) ==
LOC: HO.ED 04:16
PROVIDERS: Emergency Provider Internal Medicine
DX: F19.10 Other psychoactive substance abuse, uncomplicated (principal); Z59.00 Homelessness unspecified
CPT/HCPCS: 99282

== ENCOUNTER 2024-07-11 20:19 | Emergency (ER) | payer OTHER, SELFPAY ==
[2024-07-11] VITALS (13 sets, daily range): BP systolic 94–116; BP diastolic 48–65; PULSE 67–105; RESP 10–20; O2SAT 94–99; BMI 21.9
[2024-07-11] MEDS: Haloperidol Lactate 5 MG/ML VIAL IM (20:30)
[2024-07-11] MEDS: diphenhydrAMINE HCL 50 MG/ML VIAL IM (20:30)
[2024-07-11] MEDS: LORazepam 2 MG/ML VIAL IM (20:30)
[2024-07-11] MEDS: Ziprasidone Mesylate 20 MG VIAL IM (20:40)
[2024-07-11] MEDS: OLANZapine 10 MG VIAL IM (20:40)
--- NOTE | 2024-07-11 21:08 | ED_ITS ---
HPI - Psych General Chief Complaint: ETOH/Substance Use Stated Complaint: found police custudy unknown substance, no vitals Time Seen by Provider: 07/11/24 20:22 Source: EMS Mode of arrival: EMS Limitations: altered mental status History of Present Illness ED Provider: Dr. Rosa Dudley HPI Narrative: Patient comes to the emergency room by EMS. According to PD, patient was found outside of the house, screaming, acting erratic. Patient is in police custody. Patient is unable to answer any questions due to his erratic behavior and yelling. Patient is under the influence of a substance Related Data Allergies Allergy/AdvReac Type Severity Reaction Status Date / Time No Known Allergies Allergy Verified 07/11/24 20:30 [No Known Allergies*] Review of Systems 2 Review of Systems: Yes Unobtainable due to mental status and Other (Under the influence of drugs) PMFSH Past Medical History Medical History Polysubstance abuse Social History Social History Unable to assess alcohol history related to: Unable to respond Patient Tobacco Use Status: Current someday Tobacco user Use of substances other than those prescribed or required for medical reasons: Unable to respond Substance Use Type: Crack/Cocaine, Heroin and Opiates Advance Directives: No Advance Directives Information Provided: No Do you have a plan to hurt others: No Plan Physical Exam 2 Vital Signs: Vital Signs: Last Vital Signs Temp 98.9 F 07/12/24 03:35 Pulse 67 07/12/24 03:35 Resp 14 07/12/24 03:35 BP 114/66 07/12/24 03:35 Pulse Ox 94 07/12/24 03:35 O2 Del Method Room Air 07/12/24 03:35 BMI result Body Mass Index 21.9 Const: Other: Appearance: Alert. Diaphoretic screaming not making any sense Eyes: Dilated, reactive to light ENT: Pharynx normal. Neck: Normal inspection. Neck supple. No lymph nodes noted. No crepitus CVS: Normal heart rate and rhythm. Pulses normal. Normal S1 and S2 Respiratory: No respiratory distress. Breath sounds normal. No Wheezing. No rales Abdomen: Soft and nontender. No rigidity. No distention. Skin: Skin warm and dry. Normal skin color. Normal skin turgor. Extremities: No lower extremity edema. No Lacerations. No Rash Neuro: Unable to participating cranial nerve assessment, patient is moving all extremities Psych: Yelling, uncooperative, not making any signs Course Course Course Narrative: On arrival, patient yelling, acting erratic, not making any sense. Combative. Patient was given IM Benadryl, Haldol and Ativan. However, this medication did not touch him, patient continued acting the same, very difficult to transfer the patient from the EMS stretcher to his bed. Patient had to be given additional IM dose of Zyprexa and Geodon. Patient had to be physically restrained as well. After the 2nd IM dose, patient now sleeping. Occasionally wakes up and fights and goes back to sleep. Patient to be re-evaluated in 1 hour, patient will likely be able to come off the restrains. Medications Administered Discontinued Medications Generic Name Dose Route Start Last Admin Trade Name Freq PRN Reason Stop Dose Admin Diphenhydramine HCl 50 mg 07/11/24 20:22 07/11/24 20:30 Diphenhydramine Hcl 50 Mg/Ml Vial IM 07/11/24 20:23 50 mg ONCE ONE Administration Haloperidol Lactate 5 mg 07/11/24 20:22 07/11/24 20:30 Haloperidol Lactate 5 Mg/Ml Vial IM 07/11/24 20:23 5 mg STAT STA Administration Lorazepam 2 mg 07/11/24 20:22 07/11/24 20:30 Lorazepam 2 Mg/Ml Vial IM 07/11/24 20:23 2 mg STAT STA Administration Olanzapine 10 mg 07/11/24 20:33 07/11/24 20:40 Olanzapine 10 Mg Vial IM 07/11/24 20:34 10 mg STAT STA Administration Ziprasidone 20 mg 07/11/24 20:31 07/11/24 20:40 Ziprasidone Mesylate 20 Mg Vial IM 07/11/24 20:32 20 mg ONCE ONE Administration Medical Decision Making Lab Data 07/11/24 21:23 07/11/24 21:23 Labs: Lab Results 07/11/24 07/12/24 Range/Units 21:23 02:42 WBC 11.0 H (4.8-10.8) X10*3/uL RBC 3.72 L (4.60-5.80) X10*6/uL Hgb 10.8 L (14.0-18.0) g/dl Hct 32.3 L (42.0-52.0) % MCV 86.8 (80.0-98.0) fL MCH 29.0 (27.0-33.0) pg MCHC 33.4 (31.0-36.0) g/dl RDW 14.0 (11.0-16.0) % Plt Count 316 (160-400) X10*3/uL MPV 9.3 L (9.4-12.4) fL Immature Gran % (Auto) 0.5 H (0.0-0.4) % Neut % (Auto) 75.9 H (45-73) % Lymph % (Auto) 16.6 L (20-40) % Mclennan % (Auto) 5.1 (2-11) % Eos % (Auto) 1.5 (0-4) % Baso % (Auto) 0.4 (0-2) % Lymph # (Auto) 1.8 (1.2-4.9) X10*3/uL Mclennan # (Auto) 0.6 (0.1-1.2) X10*3/uL Eos # (Auto) 0.2 (0.0-0.4) X10*3/uL Baso # (Auto) 0.0 (0.0-0.2) X10*3/uL Abs Immat Gran (auto) 0.05 H (0.00-0.03) X10*3/uL Absolute Neuts (auto) 8.4 H (2.0-8.3) x10*3/uL Absolute Nucleated RBC 0.000 (0.0-0.012) X10*3/uL Nucleated RBC % (auto) 0.0 (0.0-0.2) /100WBC Hold Purple Top SEE NOTE Hold Blue Top SEE NOTE Sodium 137 (135-145) mmol/L Potassium 5.0 (3.3-5.1) mmol/L Chloride 111 H (96-108) mmol/L Carbon Dioxide 14 L (22-29) mmol/L Anion Gap 17 (12-20) BUN 29 H (9-16) mg/dL Creatinine 1.23 (0.5-1.4) mg/dL Estim Creat Clear Calc 70.9 Estimated GFR > 60 Random Glucose 65 (60-115) mg/dL Calcium 8.5 (8.4-10.2) mg/dL Total Bilirubin 0.2 (0.0-1.0) mg/dL Direct Bilirubin < 0.2 (0.0-0.5) mg/dL AST 71 H (5-37) U/L ALT 27 (0-40) U/L Alkaline Phosphatase 76 (39-117) U/L Total Creatine Kinase 611 H (38-174) U/L Total Protein 7.7 (6.5-8.0) g/dL Albumin 3.6 (3.5-5.0) g/dL Hold Yellow Top See Note Urine Opiates Screen POSITIVE H (Not Detect) Ur Buprenorphine Scrn Not Detected (Not Detect) ng/mL Ur Oxycodone Screen Not Detected (Not Detect) ng/mL Urine Methadone Screen Not Detected (Not Detect) ng/mL Urine Fentanyl Screen POSITIVE H (Not Detect) Ur Barbiturates Screen Not Detected (Not Detect) Ur Phencyclidine Scrn Not Detected (Not Detect) Ur Amphetamines Screen Not Detected (Not Detect) U Benzodiazepines Scrn Not Detected (Not Detect) Urine Cocaine Screen POSITIVE H (Not Detect) U Marijuana (THC) Screen Not Detected (Not Detect) Ethyl Alcohol 11 mg/dL Critical Care Time Critical Care Time Critical Care Time: Yes Total Critical Care Time: 60 Attestation: I have personally provided critical care time. Time includes review of lab data, radiology results, discussion with consultants, and monitoring for potential decompensation. Intervention performed as documented. Discharge Plan Discharge Clinical Impression: Polysubstance abuse Patient Disposition: Home, Self-Care Instructions: Polysubstance Abuse (ED) Additional Instructions: Stop using drugs Follow with [facility] Interventions: ED Discharge Assessment Last Done: 07/12/24 03:35 Discharge Date/Time: 07/12/24 03:44 Print Language: Kiswahili
[2024-07-11 21:30] LABS: MANUAL DIFF FLAG NO
[2024-07-11 21:33] LABS: Basophils Percent Auto 0.4 % (0-2); Eosinophils Absolute Auto 0.2 X10*3/uL (0.0-0.4); Eosinophils Percent Auto 1.5 % (0-4); Hematocrit 32.3 % (42.0-52.0); Hemoglobin 10.8 g/dl (14.0-18.0); Imm Gran Abs Auto 0.05 X10*3/uL (0.00-0.03); Imm Gran Pct Auto 0.5 % (0.0-0.4); Lymphocytes Absolute Auto 1.8 X10*3/uL (1.2-4.9); Lymphocytes Percent Auto 16.6 % (20-40); Mean Corpuscular HGB Conc 33.4 g/dl (31.0-36.0); Mean Corpuscular Volume 86.8 fL (80.0-98.0); Mean Platelet Volume 9.3 fL (9.4-12.4); Monocytes Absolute Auto 0.6 X10*3/uL (0.1-1.2); Monocytes Percent Auto 5.1 % (2-11); Neutrophils Absolute Auto 8.4 x10*3/uL (2.0-8.3); Neutrophils Percent Auto 75.9 % (45-73); Platelet Count 316 X10*3/uL (160-400); Red Blood Count 3.72 X10*6/uL (4.60-5.80)
[2024-07-11 21:51] LABS: Alanine Aminotransferase 27 U/L (0-40); Albumin Level 3.6 g/dL (3.5-5.0); Alkaline Phosphatase 76 U/L (39-117); Anion Gap 17 (12-20); Aspartate Amino Transferase 71 U/L (5-37); Bilirubin Direct < 0.2 mg/dL (0.0-0.5); Bilirubin Total 0.2 mg/dL (0.0-1.0); Blood Urea Nitrogen 29 mg/dL (9-16); Calcium 8.5 mg/dL (8.4-10.2); Carbon Dioxide 14 mmol/L (22-29); Chloride 111 mmol/L (96-108); Creatinine Clr Calc Pharmacy 70.9; Estimated Glomerular Filt Rate > 60; Ethanol 11 mg/dL; Glucose Random 65 mg/dL (60-115); Sodium 137 mmol/L (135-145); Total Protein 7.7 g/dL (6.5-8.0)
--- NOTE | 2024-07-11 22:24 | PC.NURSE ---
Patient BIBEri from outside his ex-girlfriend's house w/ [place] [employer]. Patient trashing on stretcher, uncooperative, incoherent. physical restraints applied by security, chemical restraints administered, see restraint documentation. Patient now resting quietly on stretcher, PD at bedside.
--- NOTE | 2024-07-11 23:46 | PC.NURSE ---
pt out of all restraints at 23:45
[2024-07-12 01:49] VITALS: BP 109/64; PULSE 82; RESP 12; O2SAT 96
--- NOTE | 2024-07-12 02:45 | PC.NURSE ---
pt ambulated with this RN and PD to and from bathroom. urine sample obtained and sent to lab
[2024-07-12 03:01] LABS: Amphetamine Screen Urine Not Detected (Not Detect); Barbiturates, Urine Not Detected (Not Detect); Benzodiazepines Screen Urine Not Detected (Not Detect); Buprenorphine Scr Not Detected (Not Detect); Cannabinoid Screen Urine Not Detected (Not Detect); Cocaine Screen Urine POSITIVE (Not Detect); Fentanyl, urine POSITIVE (Not Detect); Methadone Screen, Urine Not Detected (Not Detect); Opiate Screen Urine POSITIVE (Not Detect); Oxycodone Screen Urine Not Detected (Not Detect); Phencyclidine Screen Urine Not Detected (Not Detect)
[2024-07-12 03:35] VITALS: BP 114/66; PULSE 67; RESP 14; TEMP 37.2; O2SAT 94
== END 2024-07-12 03:44 | disposition home or self-care (01) ==
PROVIDERS: Emergency Provider Emergency Medicine
DX: F19.10 Other psychoactive substance abuse, uncomplicated (principal); R46.2 Strange and inexplicable behavior; F17.200 Nicotine dependence, unspecified, uncomplicated
CPT/HCPCS: 36415; 80048; 80076; 80307; 82550; 85025; 96372; 99284; 99285; J1200; J1630; J2060; J2359; J3486

== ENCOUNTER 2024-09-26 07:17 | Emergency (ER) | payer OTHER, SELFPAY ==
--- NOTE | ~2024-09-26 | XR_ITS ---
EXAMINATION: XR KNEE, LEFT CLINICAL INFORMATION: fall COMPARISON: None available. TECHNIQUE: Four views of the left knee. FINDINGS: No acute cortical disruption or malalignment. Small volume suprapatellar bursa joint effusion. No lytic or blastic lesions. XR/XR knee LT 4V IMPRESSION: No acute fracture or dislocation. Small volume effusion, suprapatellar bursa joint . Electronically signed by: Abhishek Vergara MD 09/26/2024 08:45 AM EDT
--- NOTE | ~2024-09-26 | XR_ITS ---
EXAMINATION: XR SHOULDER, RIGHT CLINICAL INFORMATION: fall COMPARISON: None available. TECHNIQUE: AP external rotation, Grashey, scapular Y, and axillary views of the right shoulder. FINDINGS: No acute cortical disruption or malalignment. No metallic or radiopaque foreign body. No subcutaneous emphysema. No lytic or blastic lesions. XR/XR shoulder RT min 2V IMPRESSION: Normal right shoulder x-ray. Electronically signed by: Abhishek Vergara MD 09/26/2024 08:46 AM EDT
[2024-09-26 07:19] VITALS: BP 116/81; PULSE 99; RESP 20; TEMP 36.7; O2SAT 94; BMI 21.8
--- NOTE | 2024-09-26 07:56 | ED_ITS ---
HPI - General Adult General Chief complaint: Upper Respiratory Symptoms Stated complaint: R shoulder pain Time Seen by Provider: 09/26/24 07:31 Source: patient Mode of arrival: ambulatory Limitations: no limitations History of Present Illness ED Provider: ALESHA Martin HPI narrative: This is a 39-year-old male presenting with left knee pain, right shoulder pain status post jumping over a concrete [place] barrier he reports when he was jumping over it he was bracing himself with his right upper extremity, jumped over may have bumped his left knee, since then has been experiencing significant right shoulder pain worse with movement better at rest. Has never had issues with his right shoulder in the past. He also denies previous issues with left knee. He denies numbness, tingling, fevers, chills, head strike, fall, nausea, vomiting, chest pain, shortness of breath. Related Data Allergies Allergy/AdvReac Type Severity Reaction Status Date / Time No Known Allergies Allergy Verified 09/26/24 07:24 [No Known Allergies*] Review of Systems Review of Systems: Yes all other systems are reviewed and are negative PMFSH Past Medical History Attestation statement: The following information was validated with the patient. Source: old records reviewed and nursing notes reviewed Medical History Polysubstance abuse Social History Social History Unable to assess alcohol history related to: Unable to respond Patient Tobacco Use Status: Current someday Tobacco user Substance Use Type: Crack/Cocaine, Heroin and Opiates Advance Directives: No Advance Directives Information Provided: No Do you have a plan to hurt others: No Plan Physical Exam ED Vital Signs: Vital Signs - 24 hr 09/26/24 07:19 Temperature 98.0 F Pulse Rate 99 Respiratory Rate 20 Blood Pressure 116/81 Pulse Oximetry 94 Oxygen Delivery Method Room Air BMI result Body Mass Index 21.8 vss Appearance: Alert.? Oriented X3.? No acute distress.? Head: Normocephalic, atraumatic, no step-offs or deformities Eyes: Pupils equal, round and reactive to light.? Neck: Normal inspection.? Neck supple.? CVS: Normal heart rate and rhythm.? Pulses normal.? Respiratory: No respiratory distress.? Breath sounds normal.? Abdomen: Soft and nontender.? Skin: Skin warm and dry.? Normal skin color.? Normal skin turgor.? Extremities: No lower extremity edema.? No calf ttp. 5/5 strength to bilateral upper and lower extremities.. Ambulating with steady gait normal coordination. Normal knees bilaterally. No step-offs or deformities. No laxity to lower extremities. Normal distal sensation. 2+ radial pulses equal bilateral. Normal hand director of technology. Painful range of motion to right shoulder however full. No wrist drop bilaterally. No footdrop. Neuro: Oriented X 3.? No motor deficit.? No sensory deficit. CN 2-12 intact Medical Decision Making Medical Decision Making MDM Narrative: 39-year-old male presents with right shoulder and left knee pain status post jumping over a [place] barrier. This occurred last night Physical exam No lower extremity edema.? No calf ttp. 5/5 strength to bilateral upper and lower extremities.. Ambulating with steady gait normal coordination. Normal knees bilaterally. No step-offs or deformities. No laxity to lower extremities. Normal distal sensation. 2+ radial pulses equal bilateral. Normal hand director of technology. Painful range of motion to right shoulder however full. No wrist drop bilaterally. No footdrop. History and physical exam concerning for left knee sprain strain and right shoulder sprain or strain however right shoulder pain seems to be more severe, overhead movements seem to be worse therefore leading me to believe that there is possibility for rotator cuff injury. Unlikely fracture, dislocation however will rule out. No signs of neurovascular compromise or acute threat to limb Plan imaging, Toradol Differential Diagnosis Differential Diagnoses: The differential diagnosis associated with the presentation includes (History and physical exam concerning for left knee sprain strain and right shoulder sprain or strain however right shoulder pain seems to be more severe, overhead movements seem to be worse therefore leading me to believe that there is possibility for rotator cuff injury. Unlikely fracture, disloca) Admission/Observation Consideration of admission/observation: Escalation of care including admission/observation considered Independent Interpretation I performed an independent interpretation of an: Plain X-Ray Radiology Impression Discussion of test interpretation with radiology: I have reviewed the radiologist's reading. External Record Review External record reviewed: Outpatient record Prescription Management I considered prescription management with: Other (Toradol) Chronic Conditions Patient?s care impacted by: Other (Polysubstance abuse) Discharge Plan Discharge Print Language: Albanian
[2024-09-26] MEDS: Ketorolac Tromethamine 30 MG/ML VIAL IM (08:12)
[2024-09-26 12:08] VITALS: BP 116/80; PULSE 82; RESP 18; TEMP 36.7; O2SAT 96
--- NOTE | 2024-09-26 12:08 | PC.NURSE ---
Pt refused sling/rusty wrap. Provider aware.
== END 2024-09-26 12:09 | disposition home or self-care (01) ==
PROVIDERS: Emergency Provider Emergency Medicine
DX: M25.511 Pain in right shoulder (principal); M25.562 Pain in left knee; F17.210 Nicotine dependence, cigarettes, uncomplicated
CPT/HCPCS: 73030; 73564; 96372; 99284; J1885

== ENCOUNTER → 2024-09-26 07:26 | Outpatient (BNV) | payer OTHER, SELFPAY | PROVIDERS: Visit Provider Radiology Diagnostic Radiology | DX: M25.462 Effusion, left knee (principal); M25.511 Pain in right shoulder | CPT/HCPCS: 73030; 73564 ==

== ENCOUNTER 2024-09-29 03:31 | Emergency (ER) | payer OTHER, SELFPAY ==
--- NOTE | ~2024-09-29 | XR_ITS ---
CLINICAL HISTORY: pain on walking 2 view left knee Comparison: None Findings: No acute fracture or dislocation is identified. Small joint effusion is present. IMPRESSION: 1. Small joint effusion. No acute osseous abnormality is identified. This document has been electronically signed by: Moon Hay on 09/29/2024 05:04:30
[2024-09-29 03:39] VITALS: BP 109/68; PULSE 87; RESP 16; TEMP 36.7; O2SAT 95; BMI 22.4
[2024-09-29 06:18] VITALS: BP 132/74; PULSE 86; RESP 16; TEMP 36.8; O2SAT 97
--- NOTE | 2024-09-29 08:51 | ED.EXTPRO ---
HPI - Extremity Problem General Chief complaint: Extremity Problem Stated complaint: left knee pain Time Seen by Provider: 09/29/24 08:50 Related Data Previous Rx's ?Medication ?Instructions ?Recorded ketorolac 10 mg tablet 10 mg PO TID PRN pain 5 days #15 09/26/24 tabs Allergies Allergy/AdvReac Type Severity Reaction Status Date / Time No Known Allergies Allergy Verified 09/29/24 03:41 [No Known Allergies*] [facility] Past Medical History Medical History Polysubstance abuse Social History Social History Unable to assess alcohol history related to: Unable to respond Patient Tobacco Use Status: Current someday Tobacco user Substance Use Type: Crack/Cocaine, Heroin and Opiates Advance Directives: No Advance Directives Information Provided: Yes Do you have a plan to hurt others: No Plan Physical Exam Vital Signs: Vital Signs: Last Vital Signs Temp 98.3 F 09/29/24 06:18 Pulse 86 09/29/24 06:18 Resp 16 09/29/24 06:18 BP 132/74 09/29/24 06:18 Pulse Ox 97 09/29/24 06:18 O2 Del Method Room Air 09/29/24 06:18 BMI result Body Mass Index 22.4 Course Course Course Narrative: XR knee LT 2V IMPRESSION: 1. Small joint effusion. No acute osseous abnormality is identified. Results discussed with patient including worrisome signs and symptoms and strict return precautions, and when to return to the emergency department. They verbalized understanding and feel safe for discharge at this time. Discharge Plan Discharge Prescriptions: No Action ketorolac 10 mg tablet 10 mg PO TID PRN (Reason: pain) 5 Days Qty: 15 0RF Rx Instructions: Tolerated IM or IV in department Print Language: Tajik
== END 2024-09-29 09:00 | disposition left against medical advice (07) ==
PROVIDERS: Emergency Provider Emergency Medicine Emergency Medical Services; PCP Internal Medicine
DX: M25.562 Pain in left knee (principal)
CPT/HCPCS: 73560; 99281

== ENCOUNTER → 2024-09-29 03:53 | Outpatient (BNV) | payer OTHER, SELFPAY | PROVIDERS: PCP Internal Medicine; Visit Provider Radiology Vascular & Interventional Radiology | DX: M25.462 Effusion, left knee (principal) | CPT/HCPCS: 73560 ==

== ENCOUNTER 2024-10-02 04:48 | Emergency (ER) | payer OTHER, SELFPAY ==
--- NOTE | ~2024-10-02 | XR_ITS ---
CLINICAL HISTORY: pain s p fall 1 week ago 3 view right shoulder Comparison: CR/SR - XR SHOULDER RT MIN 2V - 09/26/24 08:26 EDT Findings: No fractures or dislocations. No significant loss of joint space or osteophytes. No erosions. No radiopaque foreign body. IMPRESSION: 1. No acute findings This document has been electronically signed by: Jose Lugo MD on 10/02/2024 05:35:18
[2024-10-02 04:50] VITALS: BP 124/73; PULSE 96; RESP 16; TEMP 36.6; O2SAT 96; BMI 23.5
--- NOTE | 2024-10-02 04:59 | ED_ITS ---
HPI - Extremity Problem General Chief complaint: Extremity Injury, Upper Stated complaint: right shoulder pain Time Seen by Provider: 10/02/24 04:59 History of Present Illness ED Provider: Sadiq GREGG Narrative: The patient is a 39-year-old male who says that he injured his shoulder about a week ago when he jumped over a [place] barrier and then fell and landed on his right outstretched hand. He has had shoulder pain ever since then. He came to the emergency room on September 26 because of this pain. He had a negative x-ray. I believe he was supposed to follow up with Orthopedics but that has not worked out. He continues to have pain and returns to the emergency room tonight. He says he has been homeless. He says he does not have a regular doctor. Related Data Previous Rx's ?Medication ?Instructions ?Recorded ketorolac 10 mg tablet 10 mg PO TID PRN pain 5 days #15 09/26/24 tabs ibuprofen 400 mg tablet 400 mg PO Q6H PRN pain #14 tabs 10/02/24 Allergies Allergy/AdvReac Type Severity Reaction Status Date / Time No Known Allergies Allergy Verified 10/02/24 04:52 [No Known Allergies*] Review of Systems Review of Systems: Yes all other systems are reviewed and are negative [facility] Past Medical History Medical History Polysubstance abuse Social History Social History Unable to assess alcohol history related to: Unable to respond Patient Tobacco Use Status: Current someday Tobacco user Substance Use Type: Crack/Cocaine, Heroin and Opiates Physical Exam Vital Signs: Vital Signs: Last Vital Signs Temp 98.2 F 10/02/24 06:35 Pulse 66 10/02/24 06:35 Resp 15 10/02/24 06:35 BP 122/78 10/02/24 06:35 Pulse Ox 99 10/02/24 06:35 O2 Del Method Room Air 10/02/24 06:35 BMI result Body Mass Index 23.5 Const: Other: The patient is awake and alert. He is an unkempt 39-year-old. He seems somewhat uncomfortable. HEENT: Other: Face is symmetrical. Mucous membranes moist. Eyes: Other: Pupils are round equal, conjunctivae are clear Neck: Other: He seems to have good range of motion with the neck. No neck swelling. Resp: Effort & Inspection: normal respiratory effort Auscultation: clear to auscultation bilaterally Cardio: Rate: regular rate Rhythm: regular rhythm Heart sounds: S1 normal heart sound present and S2 normal heart sound present Skin: Other: The skin is intact. Neuro: Other: The patient is awake and alert with a normal mental status. Cranial nerves are grossly intact. He has good strength and sensation in the right hand. He has a normal gait. Extrem: Other: There is no apparent deformity to the right shoulder. He has tenderness in the region of the distal clavicle and at the AC joint as well as in the surrounding musculature. I do not appreciate any widening of the AC joint or any obvious signs of separation. He has good range of motion of the elbow, wrist, and hand. Medications Administered Discontinued Medications Generic Name Dose Route Start Last Admin Trade Name Freq PRN Reason Stop Dose Admin Acetaminophen 975 mg 10/02/24 05:05 10/02/24 05:46 Acetaminophen 325 Mg Tablet PO 10/02/24 05:06 Not Given ONCE ONE Ibuprofen 600 mg 10/02/24 06:07 10/02/24 06:17 Ibuprofen 600 Mg Tablet PO 10/02/24 06:08 600 mg ONCE ONE Administration Ketorolac Tromethamine 30 mg 10/02/24 05:05 10/02/24 05:46 Ketorolac Tromethamine 30 Mg/Ml Vial IM 10/02/24 05:06 Not Given ONCE ONE Medical Decision Making Medical Decision Making [facility] Narrative: The patient is a 39-year-old male who has been having right shoulder pain for about a week since falling going over a [place] barrier and landing on his right hand. He says that his symptoms are exacerbated by his homelessness because he is unable to sleep any where comfortable and he also has to be moving around a lot. His physical exam revealed tenderness around the shoulder but no deformity. He his right hand and arm are neurovascularly intact. An x-ray today shows no obvious abnormalities. The patient will be provided with a sling. He will be prescribed ibuprofen. He is given the contact information for Orthopedic follow up. He is also encouraged to try to get a regular primary care doctor. Discharge Plan Discharge Clinical Impression: Right shoulder strain Patient Disposition: Home, Self-Care Additional Instructions: Your x-ray does not show any signs of a fracture or dislocation. I suspect that you have strained the muscles around your right shoulder. Please wear the sling provided for comfort. I have sent a prescription for ibuprofen tablets to your pharmacy. Please contact the orthopedic office in the morning to try to make a follow up appointment for further evaluation of here injury. Please also work on getting a regular primary care doctor. Return to the emergency room if significantly worse. Prescriptions: New ibuprofen 400 mg tablet 400 mg PO Q6H PRN (Reason: pain) Qty: 14 0RF No Action ketorolac 10 mg tablet 10 mg PO TID PRN (Reason: pain) 5 Days Qty: 15 0RF Rx Instructions: Tolerated IM or IV in department Referrals: [facility] [Provider Group] [facility] [Provider Group] [facility] [Provider Group] (Right shoulder strain) Interventions: ED Discharge Assessment Last Done: 10/02/24 06:35 Discharge Date/Time: 10/02/24 06:36 Print Language: Kenyan
--- NOTE | 2024-10-02 04:59 | PC.NURSE ---
pt a&ox4, respirations even and unlabored. pt reporting x1 week of right shoulder pain after he had a trip and fall over guard rail. pt reports strike to shoulder when he fell. pt has full range of motion of shoulder but has pain with movement. cms in tact. vss.
--- NOTE | 2024-10-02 05:46 | PC.NURSE ---
attempted to medicate pt per mar, pt refused at this time, pt states he only wants ibuprofen and a sandwich.
[2024-10-02] MEDS: Ibuprofen 600 MG TABLET PO (06:17)
[2024-10-02 06:35] VITALS: BP 122/78; PULSE 66; RESP 15; TEMP 36.8; O2SAT 99
== END 2024-10-02 06:36 | disposition home or self-care (01) ==
PROVIDERS: Emergency Provider Emergency Medicine
DX: S46.911A Strain of unspecified muscle, fascia and tendon at shoulder and upper arm level, right arm, initial encounter (principal); W17.89XA Other fall from one level to another, initial encounter; M25.511 Pain in right shoulder; Y93.39 Activity, other involving climbing, rappelling and jumping off; Y92.410 Unspecified street and highway as the place of occurrence of the external cause; Y99.9 Unspecified external cause status
CPT/HCPCS: 73030; 99283; 99284

== ENCOUNTER → 2024-10-02 05:10 | Outpatient (BNV) | payer OTHER, SELFPAY | PROVIDERS: Emergency Provider Emergency Medicine; Visit Provider Radiology Diagnostic Radiology | DX: M25.511 Pain in right shoulder (principal) | CPT/HCPCS: 73030 ==

== ENCOUNTER 2024-11-25 11:08 | Outpatient (REF) | payer OTHER, SELFPAY ==
--- OUTSIDE RECORDS SUMMARY | 2024-11-26 12:29 | XMS_ITS | Clinical Summary ---
Author Organization [facility] ity Address [address] [place] [address] Care Team Providers Care Linux Support Engineer Name Role Phone Unavailable Primary Care Provider Unavailabl e Social History Tobacco Use Types Packs/Day Years Used Date Smoking Tobacco: Never Assessed Sex and Gender Information Value Date Recorded Sex Assigned at Not on file Legal Sex Male 10:19 PM EST Gender Identity Not on file Sexual Orientation Not on file Plan of Treatment Health Maintenance Due Date Last Done Comments DTaP,Tdap,and Td Vaccines (1 - Tdap) 2002 Hepatitis B Vaccines (1 of 3 - 19+ 3-dose series) 2002 Cholesterol Screening (Lipid Panel) 06/10/2022 Depression Screening 06/10/2022 HIV Screening 06/10/2022 Hepatitis C Screening 06/10/2022 Social Influencers of Health Screening 06/10/2022 COVID-19 Vaccine (2023-2 5 season) 2024 Influenza Vaccine (Season Ended) 2025 HIB Vaccines Aged Out No longer eligi ble based on patient's age to complete this topic HPV Vaccines Aged Out No longer eligi ble based on patient's age to complete this topic Hepatitis A Vaccines Aged Out No long er eligible based on patient's age to complete this topic IPV Vaccines Aged Out No longer eligi ble based on patient's age to complete this topic MMR Vaccines Aged Out No longer eligi ble based on patient's age to complete this topic Meningococcal ACWY Vaccine Aged Out N o longer eligible based on patient's age to complete this topic Meningococcal B Vaccine Aged Out No l onger eligible based on patient's age to complete this topic Pneumococcal Vaccine: Pediat rics (0 to 5 Years) and At-Risk Patients (6 to 64 Years) Aged Out No longer eligible b ased on patient's age to complete this topic RSV Immunization Patients Un santino 20 months Aged Out No longer eligible b ased on patient's age to complete this topic Varicella Vaccines Aged Out No longer eligible based on patient's age to complete this topic
== END 2024-11-25 11:09 | disposition home or self-care (01) ==
LOC: HO.HOSX 11:08
PROVIDERS: Visit Provider Physician Assistant
DX: Z13.89 Encounter for screening for other disorder (principal)